=== PATIENT | female | born 2000 | race Caucasian/White ===

== ENCOUNTER 2024-08-28 11:39 | Emergency (ER) | payer BC, SELFPAY ==
[2024-08-28 11:56] VITALS: BP 113/82
[2024-08-28 14:36] VITALS: BMI 34.7
[2024-08-28 14:38] VITALS: BP 110/72
[2024-08-28 14:41] VITALS: BP 110/72
[2024-08-28] MEDS: NSS 1000 IV (14:42)
[2024-08-28 15:00] VITALS: BP 98/71
[2024-08-28 15:04] LABS: Hematocrit 39.3 % (37.0-47.0); Hemoglobin 14.1 g/dL (12.0-16.0); Mean Corp Hgb Conc. 35.9 g/dL (33.0-37.0); Mean Corpuscular Volume 84.9 fL (81.0-99.0); Platelet Count 280 10^3/uL (130-400); Red Cell Dist. Width 12.8 % (11.5-14.5)
[2024-08-28 15:17] LABS: ALT (SGPT) 219 U/L (0-35); AST (SGOT) 83 U/L (14-36); Albumin 4.4 g/dl (3.5-5.0); Alkaline Phosphatase 69 U/L (38-126); Blood Urea Nitrogen 8 mg/dl (7-17); Calcium 9.3 mg/dl (8.4-10.2); Carbon Dioxide 26 mmol/L (22-30); Chloride 106 mmol/L (98-107); Estimated Creatinine Clearance > 125 ml/min; Glucose 78 mg/dl (70-99); Lipase 65 U/L (23-300); Potassium 4.3 mmol/L (3.5-5.1); Sodium 139 mmol/L (135-145); Total Protein 7.5 g/dl (6.3-8.2); eGFR > 60.00
--- NOTE | 2024-08-28 16:04 | ED.GENMED ---
History of Present Illness
General
Chief Complaint: Abdominal Symptoms
Time Seen by Provider: 08/28/24 13:46
History of Present Illness
History of Present Illness:
23-year-old female presents for evaluation of persistent vomiting and diarrhea for the past 3 weeks. Sibling also ill with similar symptoms. Symptoms do seem to wax and wane, no night sweats or fevers.
Review of Systems
Review of Systems
Allergies reviewed?: Yes
All Other Systems: ROS reviewed and negative except as documented in HPI and ROS
Phy Exam
Physical Exam
Physical Exam:
GEN: Well appearing, NAD, WDWN
HEENT: Oral mucosa moist, no scleral icterus
Cardiac: Regular rate
Lung: No respiratory distress, no tachypnea
Abd: Soft, grossly non tender
MSK: No gross deformity or injuries
Skin: Good color, no pallor or jaundice, no rashes
Neuro: AO x3, moves all extremities freely
Psych: Calm, cooperative
Course
Orders/Labs/Results
Orders:
Orders
08/28/24 14:04
0.9% Sodium Chloride 1000 ml [Nss] 1,000 ml IV BOLUS
08/28/24 14:44
Complete Blood Count/No Diff Urgent
Comprehensive Metabolic Panel Urgent
Lipase Urgent
08/28/24 18:13
Acetaminophen [Tylenol] 1,000 mg PO NOW STA
Abnormal Lab Results
08/28/24
14:44
AST 83 H U/L
(14-36)
ALT 219 H U/L
(0-35)
08/28/24 14:44
08/28/24 14:44
Vital Signs
Initial and Last Documented VS:
Initial Vital Signs
Temp Pulse Resp BP Pulse Ox
98.7 F 87 16 113/82 98
08/28/24 11:56 08/28/24 11:56 08/28/24 11:56 08/28/24 11:56 08/28/24 11:56
Last Documented Vital Signs
Temp Pulse Resp BP Pulse Ox
97.9 F 76 18 94/66 98
08/28/24 19:10 08/28/24 19:10 08/28/24 19:10 08/28/24 19:10 08/28/24 19:10
MDM/Problems Addressed
MDM/Problems Addressed:
Most likely self-limited viral syndrome versus foodborne pathogen, sibling was able to provide a stool specimen however the patient was not able to provide one, will cover with empiric therapy
*Pulse Oximetry
SaO2: 95
Oxygen Mode of Delivery: Room air
Patient hypoxic: no
*Critical Care Note
Total Time (30-74mins, 75-104mins- exclusive of procedures): Not Applicable
ED Attending Note
-
Portions of this chart may have been created with voice recognition software.� Occasional wrong word or��sound alike� substitutions may have occurred due to the inherent limitations of voice recognition software.
Discharge Plan
Departure
Patient Disposition: Home (Routine Discharge)
Date of Disposition: 08/28/24
Time of Disposition: 16:14
Patient with high blood pressure during this ER visit?: No
Discharge Problem:
Diarrhea
Instructions: Diarrhea in teens and adults
Prescriptions:
New
azithromycin 500 mg tablet
500 mg PO DAILY Qty: 3 0RF
Rx Instructions:
500 mg orally;
Referrals:
UNKNOWN - PT DOES,NOT KNOW [Family Provider]
Interventions
Interventions:
*Risk Screen - Suicide Last Done: 08/28/24 11:56
*General Assessment Last Done: 08/28/24 14:36
*Neglect/Abuse Screening Last Done: 08/28/24 11:56
*ED- Fall Risk Assessment Last Done: 08/28/24 11:56
*ED COVID-19 Vaccine History Last Done: 08/28/24 14:40
*Nursing Disposition Last Done: 08/28/24 19:10
RM-Enhaeo-Tepdrhgguj Assessment Last Done: 08/28/24 14:36
Discharge Date and Time
Discharge Date/Time: 08/28/24 18:50
Print Language: HAITIAN
[2024-08-28] MEDS: TYLENOL 1000 MG PO (18:44)
--- NOTE | 2024-08-28 19:08 | EDRN ---
Reviewed discharge instructions with patient. Verbalized understanding. Ambulated with steady gait to the lobby.
[2024-08-28 19:10] VITALS: BP 94/66
== END 2024-08-28 18:50 | disposition home or self-care (01) ==
LOC: EMR 11:39
PROVIDERS: Physician Assistant; EMERGENCY PHYSICIAN Student in an Organized Health Care Education/Training Program
DX: R19.7 Diarrhea, unspecified (principal); R11.10 Vomiting, unspecified
CPT/HCPCS: 96360; 99284; 80053; 83690; 85027

== ENCOUNTER 2024-09-02 13:24 | Emergency (ER) | payer BC, SELFPAY ==
[2024-09-02 13:30] VITALS: BP 110/72
--- NOTE | 2024-09-02 14:35 | ED.GENMED ---
History of Present Illness
General
Chief Complaint: Abdominal Symptoms
Source: patient
Exam Limitations: none
Time Seen by Provider: 09/02/24 14:24
Nursing documentation reviewed up to this point in time: agreed with
History of Present Illness
History of Present Illness:
Patient is a 23-year-old female with history of PCOS, obsessive-compulsive disorder, anxiety presents to the ER for evaluation. Patient reports she had nausea and vomiting diarrhea last was seen here on Friday. She was discharged with a
Z-Lloyd however since then has had persistent pain in her left upper quadrant. She reports when she was seen here in the ER on Friday 5 days ago her LFTs were elevated. She also had blood work done by her PCP on Friday and LFTs were persistently
elevated. She reports pain is mostly constant left upper quadrant she is currently not nauseous no recent vomiting since Friday. She denies any back pain. She is on Zepbound but reports her dose has been the same since April and she has not
taken any medicine in 2 weeks. Zepbound was initially started in March.
Review of Systems
Review of Systems
Allergies reviewed?: Yes
All Other Systems: ROS reviewed and negative except as documented in HPI and ROS
Phy Exam
General Physical Exam
General Presentation: no apparent distress
General age: appears stated age
General Skin: warm and dry
General Habitus: obese
General Mental: alert
General Hydration: appears well hydrated
Gastrointestinal Exam
Gastrointestinal Exam: soft and other (tender luq )
Neurological Exam
Neurological Exam: alert and oriented x3
Musculoskeletal Exam
Musculoskeletal Exam: full ROM
Skin Exam
Skin Exam: normal color and warm/dry
Psychiatric Exam
Psychiatric Exam: normal mood/affect
Course
Orders/Labs/Results
Orders:
Orders
09/02/24 14:34
IV Insert/Care/Rem.- Treatment PRN
0.9% Sodium Chloride 1000 ml [Nss] 1,000 ml IV BOLUS
09/02/24 14:35
CT Abd/Pel (IV only)-DH only Urgent
Comment:
Reason For Exam: LUQ pain elevated lfts
Test Result ONCE
09/02/24 14:38
Complete Blood Count/With Diff Urgent
Comprehensive Metabolic Panel Urgent
HCG, Serum Qualitative Screen Urgent
Lipase Urgent
Monotest Urgent
Comment: ADD ON
Urinalysis Reflex To Culture Urgent
Date Specimen was Collected: 09/02/24
Time Specimen was Collected: 14:37
09/02/24 17:04
Add On- LAB Urgent
Tests Added?: mono spot
Abnormal Lab Results
09/02/24
14:38
BUN 6 L mg/dl
(7-17)
AST 98 H U/L
(14-36)
ALT 287 H U/L
(0-35)
09/02/24 14:38
09/02/24 14:38
Vital Signs
Initial and Last Documented VS:
Initial Vital Signs
Temp Pulse Resp BP Pulse Ox
98.6 F 80 20 110/72 98
09/02/24 13:30 09/02/24 13:30 09/02/24 13:30 09/02/24 13:30 09/02/24 13:30
Last Documented Vital Signs
Temp Pulse Resp BP Pulse Ox
98.6 F 80 20 100/67 98
09/02/24 13:30 09/02/24 13:30 09/02/24 13:30 09/02/24 15:00 09/02/24 14:38
Air Conditioning Equipment Mechanic consulted with Physician
Air Conditioning Equipment Mechanic consulted with physician?: Yes (jones )
MDM/Problems Addressed
Differential Diagnosis Includes:
Not limited to pancreatitis biliary colic gastritis
MDM/Problems Addressed:
As documented patient recently had diarrhea and was seen here several days ago however now complains of persistent pain in the left upper quadrant and has elevated LFTs. She denies any recent illness fever chills. Her monotest is negative. Her
LFTs are elevated with an AST of 98 and an ALT of 287(which is slightly increased from 08/28/04). no recent alcohol.
as documented she was seen here recently for diarrhea but that has since resolved. No vomiting. She is no acute distress and looks well nontoxic-appearing CAT scan shows mild hepatosplenomegaly and right ovarian cyst.
Monotest is negative. No clear cause of patient's symptoms however she will need follow-up. I did review with patient to not take step down. She is not taken in 2 weeks. I did notify GI hotline to attempted to expedite an appointment as her
current GI appointment is not until September
She is to return with any worsening of symptoms.
Chronic conditions affecting care:
on zepbound
*Radiology
Radiology exam reviewed: radiology read reviewed
*Pulse Oximetry
SaO2: 98
Oxygen Mode of Delivery: Room air
Patient hypoxic: no
*Critical Care Note
Total Time (30-74mins, 75-104mins- exclusive of procedures): Not Applicable
ED Attending Note
-
Portions of this chart may have been created with voice recognition software.� Occasional wrong word or��sound alike� substitutions may have occurred due to the inherent limitations of voice recognition software.
Discharge Plan
Departure
Patient Disposition: Home (Routine Discharge)
Date of Disposition: 09/02/24
Time of Disposition: 18:31
Patient with high blood pressure during this ER visit?: No
Condition: Fair
Covid-19: Not Applicable
Discharge Problem:
Abdominal pain, Elevated liver function tests
Instructions: Abdominal Pain
Prescriptions:
No Action
azithromycin 500 mg tablet
500 mg PO DAILY Qty: 3 0RF
Rx Instructions:
500 mg orally;
Referrals:
Tariq Culp MD [Active, Gastroenterology]
UNKNOWN - PT DOES,NOT KNOW [Family Provider]
Activity Restrictions/Additional Instructions:
As documented please follow-up with GI. Your liver functions are elevated and your CAT scan does show mild hepatosplenomegaly as discussed.
Avoid all alcohol. Avoid Tylenol do not take your Zepbound until cleared by GI.
Return if any worsening of symptoms including increased abdominal pain nausea vomiting fever chills. Follow-up with GI, you are placed on the GI front desk team member hotline you should receive a phone call in the next 1 to 2 days to assist you with
scheduling an appointment
Interventions
Interventions:
*Risk Screen - Suicide Last Done: 09/02/24 13:30
*General Assessment Last Done: 09/02/24 14:02
*Neglect/Abuse Screening Last Done: 09/02/24 13:30
*ED- Fall Risk Assessment Last Done: 09/02/24 14:02
*ED COVID-19 Vaccine History Last Done: 09/02/24 14:02
PV-Naouon-Ayfrakmjwz Assessment Last Done: 09/02/24 14:01
Discharge Date and Time
Print Language: FRENCH
[2024-09-02 14:39] VITALS: BMI 34.8
[2024-09-02] MEDS: NSS 1000 IV (14:48)
[2024-09-02 14:51] VITALS: BP 106/69
[2024-09-02 15:00] VITALS: BP 100/67
[2024-09-02 15:02] LABS: Hematocrit 38.7 % (37.0-47.0); Hemoglobin 13.3 g/dL (12.0-16.0); Mean Corp Hgb Conc. 34.4 g/dL (33.0-37.0); Mean Corpuscular Volume 87.4 fL (81.0-99.0); Nucleated Red Blood Cells % 0 %; Platelet Count 259 10^3/uL (130-400); Red Cell Dist. Width 13.0 % (11.5-14.5)
[2024-09-02 15:12] LABS: HCG, Serum Qualitative Screen Negative
[2024-09-02 15:15] LABS: Urine Character Clear (Clear)
[2024-09-02 15:20] LABS: ALT (SGPT) 287 U/L (0-35); AST (SGOT) 98 U/L (14-36); Albumin 4.0 g/dl (3.5-5.0); Alkaline Phosphatase 73 U/L (38-126); Blood Urea Nitrogen 6 mg/dl (7-17); Calcium 9.1 mg/dl (8.4-10.2); Carbon Dioxide 28 mmol/L (22-30); Chloride 106 mmol/L (98-107); Estimated Creatinine Clearance > 125 ml/min; Glucose 81 mg/dl (70-99); Lipase 123 U/L (23-300); Potassium 3.9 mmol/L (3.5-5.1); Sodium 138 mmol/L (135-145); Total Protein 6.9 g/dl (6.3-8.2); eGFR > 60.00
== END 2024-09-02 19:20 | disposition home or self-care (01) ==
LOC: EMR 13:24
PROVIDERS: Nurse Practitioner; EMERGENCY PHYSICIAN Emergency Medicine
DX: R10.12 Left upper quadrant pain (principal); R79.89 Other specified abnormal findings of blood chemistry; E28.2 Polycystic ovarian syndrome; F42.9 Obsessive-compulsive disorder, unspecified; F41.9 Anxiety disorder, unspecified
CPT/HCPCS: 99284; 96360; 74177; 80053; 81003; 83690; 84703; 85025; 86308; Q9967

== ENCOUNTER 2024-09-17 06:18 | Day surgery (SDC) | payer BC, SELFPAY | END 2024-09-17 13:11 | disposition home or self-care (01) | LOC: GI 06:18 | PROVIDERS: ATTENDING PHYSICIAN Internal Medicine Gastroenterology | DX: R10.12 Left upper quadrant pain (principal); R11.2 Nausea with vomiting, unspecified; K29.50 Unspecified chronic gastritis without bleeding; K63.9 Disease of intestine, unspecified | CPT/HCPCS: 43239; 88305; 88342 ==

== ENCOUNTER 2025-01-02 02:20 | Emergency (ER) | payer BC, SELFPAY ==
[2025-01-02 02:22] VITALS: BP 112/75
[2025-01-02 02:40] VITALS: BP 114/83
[2025-01-02 02:43] VITALS: BMI 29.9
[2025-01-02 02:47] VITALS: BP 114/83
[2025-01-02] MEDS: NSS 1000 IV (02:55)
[2025-01-02] MEDS: TORADOL 15 MG IV (02:58)
--- NOTE | 2025-01-02 03:05 | ED.GENMED ---
History of Present Illness
<Berenice Claire PA-C - Last Filed: 01/02/25 14:12>
General
Chief Complaint: Abdominal Pain
Source: patient and family
Exam Limitations: none
Time Seen by Provider: 01/02/25 02:41
Nursing documentation reviewed up to this point in time: agreed with
History of Present Illness
History of Present Illness:
Patient is a 24-year-old female who presents to the emergency department with mom for evaluation of upper abdominal pain. She states symptoms began shortly before midnight when she was sleeping. She describes a pain across her entire upper abdomen
however worse on the right side and associated with nausea. She denies any radiation of pain into the back. No associated episodes of vomiting or known fever. No shortness of breath or exertional chest pain although she does describe some degree
of tightness in upper abdomen.
Of note�patient was found to have gallstones on an abdominal ultrasound performed this past Friday. This was done as a follow-up test after bout of GI symptoms this summer which was later determined to be hepatitis A and mono.
She also recently recovered from a suspected norovirus last week with multiple episodes of nausea, vomiting, and diarrhea.
Patient is on a GLP-1 injection however has not taken in a few weeks due to ongoing GI symptoms.
Review of Systems
<Berenice Claire PA-C - Last Filed: 01/02/25 14:12>
Review of Systems
Allergies reviewed?: Yes
All Other Systems: ROS reviewed and negative except as documented in HPI and ROS
Phy Exam
<Berenice Claire PA-C - Last Filed: 01/02/25 14:12>
Physical Exam
Physical Exam:
Vitals: Patient's vital signs are stable. Afebrile
General: Patient is uncomfortable appearing however nontoxic.
Skin: Warm and dry, no rashes or lesions
Head: Normocephalic, atraumatic
Eyes: Sclera nonicteric.
Throat: Protecting airway
Neck: Normal ROM, no cervical spine tenderness, no meningismus
Cardiac: Regular rate and rhythm, no murmurs.
Pulm: Normal respiratory effort. Lungs clear bilaterally
.
Abdomen: Abdomen soft. Reproducible tenderness in epigastric and right upper quadrant. No rebound or guarding. No tenderness McBurney's point.
Extremities: No evidence of cyanosis or edema
Neuro: AAOx3. Grossly intact.
Psychiatric: Normal affect.
Course
<Berenice Claire PA-C - Last Filed: 01/02/25 14:12>
Orders/Labs/Results
Orders:
Orders
01/02/25 02:31
IV Insert/Care/Rem.- Treatment PRN
Test Result ONCE
01/02/25 02:43
Complete Blood Count/With Diff Urgent
Comprehensive Metabolic Panel Urgent
HCG, Serum Qualitative Screen Urgent
Comment: Notify provider if positive test present
Lipase Urgent
01/02/25 02:54
0.9% Sodium Chloride 1000 ml [Nss] 1,000 ml IV BOLUS
Ketorolac [Toradol] 15 mg IV NOW STA
01/02/25 03:57
US Abdomen Complete/Upper Urgent
Comment:
Reason For Exam: Acute RUQ abd pain w nausea
Abnormal Lab Results
01/02/25
02:43
Glucose 140 H mg/dl
(70-99)
ALT 71 H U/L
(0-35)
01/02/25 02:43
01/02/25 02:43
Vital Signs
Initial and Last Documented VS:
Initial Vital Signs
Temp Pulse Resp BP Pulse Ox
97.6 F 65 20 112/75 99
01/02/25 02:22 01/02/25 02:22 01/02/25 02:22 01/02/25 02:22 01/02/25 02:22
Last Documented Vital Signs
Temp Pulse Resp BP Pulse Ox
97.6 F 77 20 107/81 96
01/02/25 02:22 01/02/25 03:54 01/02/25 03:54 01/02/25 03:54 01/02/25 03:54
<Cecy Sharma DO - Last Filed: 01/02/25 06:17>
Orders/Labs/Results
Orders:
Orders
01/02/25 02:31
IV Insert/Care/Rem.- Treatment PRN
Test Result ONCE
01/02/25 02:43
Complete Blood Count/With Diff Urgent
Comprehensive Metabolic Panel Urgent
HCG, Serum Qualitative Screen Urgent
Comment: Notify provider if positive test present
Lipase Urgent
01/02/25 02:54
0.9% Sodium Chloride 1000 ml [Nss] 1,000 ml IV BOLUS
Ketorolac [Toradol] 15 mg IV NOW STA
01/02/25 03:57
US Abdomen Complete/Upper Urgent
Comment:
Reason For Exam: Acute RUQ abd pain w nausea
Abnormal Lab Results
01/02/25
02:43
Glucose 140 H mg/dl
(70-99)
ALT 71 H U/L
(0-35)
01/02/25 02:43
01/02/25 02:43
Vital Signs
Initial and Last Documented VS:
Initial Vital Signs
Temp Pulse Resp BP Pulse Ox
97.6 F 65 20 112/75 99
01/02/25 02:22 01/02/25 02:22 01/02/25 02:22 01/02/25 02:22 01/02/25 02:22
Last Documented Vital Signs
Temp Pulse Resp BP Pulse Ox
97.6 F 77 20 107/81 96
01/02/25 02:22 01/02/25 03:54 01/02/25 03:54 01/02/25 03:54 01/02/25 03:54
<Berenice Claire PA-C - Last Filed: 01/02/25 14:12>
MDM/Problems Addressed
Differential Diagnosis Includes:
Not limited to: Biliary colic, acute cholecystitis, choledocholithiasis, pancreatitis, gastritis, GERD, etc.
MDM/Problems Addressed:
24-year-old female presenting with acute onset upper abdominal discomfort, worse in right upper quadrant and associated with nausea. No fever or vomiting. No exertional chest pain. No radiation of pain to back. Patient did have outpatient
abdominal ultrasound performed on Friday which did reveal evidence of cholelithiasis. Vitals are stable on arrival. On exam, patient appears mildly uncomfortable however nontoxic. Abdomen is soft with reproducible tenderness in epigastric and
right upper quadrant. No rebound or guarding. No focal tenderness McBurney's point. Cardio/pulmonary assessment unremarkable. No clinical evidence of DVT on exam.
Differential as above. Symptoms do seem consistent with likely biliary etiology. With known gallstones, this could be an episode of biliary colic however will obtain lab work, abdominal ultrasound to rule out any evidence of acute cholecystitis.
She took Zofran prior to arrival and is no longer nauseous. Will give IV fluids and IV Toradol. Will reassess after above.
Update: Labs unremarkable. ALT mildly elevated although significantly improved from prior. Patients pain has improved w/ toradol. Will reassess after abdominal US.
Case signed out to attending physician pending abdominal US
Chronic conditions affecting care:
Known cholelithiasis
Acute Exacerbation and/or Progression of Chronic Illness:
N/A
<Berenice Claire PA-C - Last Filed: 01/02/25 14:12>
*Pulse Oximetry
SaO2: 96
Oxygen Mode of Delivery: Room air
Patient hypoxic: no
*EKG
Interpreted by ED Provider?: NA
*Gauge Operator Interpretation
Rate: Gauge Operator- N/A
Data Reviewed
Review of Other/Old Records Reveals: Radiology Studies (I personally reviewed report from abdominal ultrasound performed on 12/28/2024 which revealed evidence of cholelithiasis without acute cholecystitis)
<Cecy Sharma DO - Last Filed: 01/02/25 06:17>
*Radiology
Radiology exam reviewed: radiology read reviewed
*Critical Care Note
Total Time (30-74mins, 75-104mins- exclusive of procedures): Not Applicable
ED Attending Note
<Berenice Claire PA-C - Last Filed: 01/02/25 14:12>
-
Portions of this chart may have been created with voice recognition software.� Occasional wrong word or��sound alike� substitutions may have occurred due to the inherent limitations of voice recognition software.
<Cecy Sharma DO - Last Filed: 01/02/25 06:17>
ED Attending Note
Patient seen and examined by attending physician: Yes
I performed a history and physical exam of patient and discussed management with resident, I reviewed resident's note and agree with documented findings and plan of care.: Yes
ED Attending Note:
24-year-old female with history of PCOS, OCD, anxiety, bipolar disorder, obesity was suffering with protracted nausea, vomiting, diarrhea this past summer. Evaluated in this ED as well as with GI and eventually diagnosed with hepatitis A as well as
mono. No symptoms have resolved until 1 week ago she developed acute nausea, vomiting, diarrhea, thought to be norovirus. 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 Those GI symptoms have since resolved.
Patient had an outpatient abdominal ultrasound 5 days ago that reportedly shows gallstones.
This morning she awoke with abrupt onset of generalized upper abdominal pain associated with nausea. She took a dose of Zofran at home, nausea has resolved. Upper abdominal pain persists.
24-year-old woman appears her stated age, bright and alert, pleasant, appears in no acute distress.
Abdomen is soft, nondistended, mild to moderate tenderness epigastric and right upper quadrant without rebound or guarding no rigidity.
Concern for acute cholecystitis, gastroduodenitis, pancreatitis.
Labs are pending.
Feeling improved after an IV dose of Toradol. IV fluids infusing.
Will plan for abdominal ultrasound assess for potential cholecystitis.
05:45
Labs are unremarkable. All within normal limits save for very minimally elevated ALT of 71, improved from previous.
Abdominal ultrasound is unremarkable. Negative Wright sign. Unremarkable gallbladder.
I have reviewed the ultrasound as well. There is an element of overlying bowel gas that may be obscuring small gallstones but certainly no definitive evidence of cholelithiasis and gallbladder wall is normal, no evidence of cholecystitis as well as
report of negative Wright sign.
Patient is much more comfortable. Sleeping when undisturbed. Very minimal tenderness with deep palpation only to the right upper quadrant.
Patient may have suffered an episode of biliary colic but there is clearly no evidence of acute cholecystitis.
Recommend strict low-fat/nonfat diet.
Patient's primary residence is [place]. Encouraged to follow-up with a general surgeon upon returning home as well as gastroenterology.
I have written a prescription for Zofran for as needed nausea and a few Vicodin if similar right upper quadrant pain recurs.
If ineffective or if right upper quadrant pain associated with intractable vomiting or fever, prompt return to local ED for further evaluation.
Discharge Plan
Departure
Patient Disposition: Home (Routine Discharge)
Date of Disposition: 01/02/25
Time of Disposition: 06:08
Patient with high blood pressure during this ER visit?: No
Condition: Good
Discharge Problem:
Acute abdominal pain in right upper quadrant, Concern for biliary colic
Instructions: Gallstones (DC), Low-fat diet
Prescriptions:
New
ondansetron 4 mg tablet,disintegrating
4 mg PO QID PRN (Reason: nausea and vomiting) Qty: 20 0RF
hydrocodone-acetaminophen 5-325 mg tablet
1 tab PO Q8H PRN (Reason: Pain) Qty: 6 0RF
No Action
metformin 500 mg Tablet
500 mg PO HS
trazodone 50 mg Tablet
50 mg PO DAILY
clonazepam 0.5 mg Tablet
0.5 mg PO BID
omeprazole [Prilosec] 40 mg Capsule,Delayed Release(Dr/Ec)
40 mg PO DAILY
carbamazepine 100 mg Tablet,Chewable
600 mg PO HS
ondansetron [Zofran ODT] 4 mg Tablet,Disintegrating
4 mg PO Q8H
bupropion HCl [Wellbutrin XL] 300 mg Tablet Extended Release 24 Hr
300 mg PO DAILY
Zepbound 7.5 mg/0.5 mL Pen Injector
7.5 mg SC WEEKLY
Lexapro
30 mg PO DAILY
Referrals:
UNKNOWN - PT DOES,NOT KNOW [Family Provider]
Interventions
Interventions:
*Risk Screen - Suicide Last Done: 01/02/25 02:22
*General Assessment Last Done: 01/02/25 02:22
*Neglect/Abuse Screening Last Done: 01/02/25 02:43
*ED- Fall Risk Assessment Last Done: 01/02/25 02:26
*ED COVID-19 Vaccine History Last Done: 01/02/25 02:26
*ED Influenza Vaccine History Last Done: 01/02/25 02:26
*Nursing Disposition Last Done: 01/02/25 06:33
AS-Mnjogz-Kfkgjonfjw Assessment Last Done: 01/02/25 02:43
Discharge Date and Time
Discharge Date/Time: 01/02/25 06:34
Print Language: WELSH
[2025-01-02 03:10] LABS: Hematocrit 39.2 % (37.0-47.0); Hemoglobin 13.1 g/dL (12.0-16.0); Mean Corp Hgb Conc. 33.4 g/dL (33.0-37.0); Mean Corpuscular Volume 89.7 fL (81.0-99.0); Nucleated Red Blood Cells % 0 %; Platelet Count 292 10^3/uL (130-400); Red Cell Dist. Width 12.6 % (11.5-14.5)
[2025-01-02 03:20] LABS: HCG, Serum Qualitative Screen Negative
[2025-01-02 03:26] LABS: ALT (SGPT) 71 U/L (0-35); AST (SGOT) 29 U/L (14-36); Albumin 4.0 g/dl (3.5-5.0); Alkaline Phosphatase 80 U/L (38-126); Blood Urea Nitrogen 8 mg/dl (7-17); Calcium 9.3 mg/dl (8.4-10.2); Carbon Dioxide 30 mmol/L (22-30); Chloride 103 mmol/L (98-107); Estimated Creatinine Clearance > 125 ml/min; Glucose 140 mg/dl (70-99); Lipase 154 U/L (23-300); Potassium 4.4 mmol/L (3.5-5.1); Sodium 140 mmol/L (135-145); Total Protein 6.9 g/dl (6.3-8.2); eGFR > 60.00
[2025-01-02 03:54] VITALS: BP 107/81
== END 2025-01-02 06:34 | disposition home or self-care (01) ==
LOC: EMR 02:20
PROVIDERS: EMERGENCY PHYSICIAN Emergency Medicine
DX: R10.11 Right upper quadrant pain (principal); F42.9 Obsessive-compulsive disorder, unspecified; E28.2 Polycystic ovarian syndrome; F41.9 Anxiety disorder, unspecified; F31.9 Bipolar disorder, unspecified
CPT/HCPCS: 99284; 96374; 76700; 80053; 83690; 84703; 85025